=== PATIENT | male | born 1965 | race Asian ===

== ENCOUNTER 2017-01-23 16:22 | Emergency (ER) | payer BC ==
[~2017-01-23] VITALS: Ht 182.9 cm; Wt 82.6 kg
[2017-01-23 16:31] VITALS: BP_SYST 126
--- NOTE | 2017-01-23 16:34 | NUR ---
Pt to bed 3
--- NOTE | 2017-01-23 16:38 | NUR ---
Pt in restroom giving urine sample
--- NOTE | 2017-01-23 16:45 | NUR ---
Pt presents to ED with rt flank pain. Reports vomiting x3 d/t pain. Denies dysuria, frequency, hematuria. Pt is A&Ox4 in no acute distress.
--- NOTE | 2017-01-23 16:45 | NUR ---
TEMP RE-CHECKED= 98.1
[2017-01-23] MEDS ORDERED: NACL 0.9% 1,000 ML IV ONE (17:05)
[2017-01-23] MEDS ORDERED: KETOROLAC TROMETHAMINE 30 MG VIAL IVP ONE (17:15)
[2017-01-23 17:17] LABS: BILIRUBIN,URINE NEGATIVE (NEGATIVE); BLOOD, URINE 3+ (NEGATIVE); CLARITY/URINE HAZY (CLEAR); COLOR,URINE YELLOW (YELLOW); GLUCOSE,URINE NEGATIVE (NEGATIVE); KETONES,URINE NEGATIVE (NEGATIVE); LEUKOCYTE ESTERASE ,URINE NEGATIVE (NEGATIVE); NITRITE, URINE NEGATIVE (NEGATIVE); PH,URINE 5.5 (5.0-8.0); PROTEIN URINE TRACE (NEGATIVE); UROBILINOGEN,URINE 0.2 (0.2-1.0)
--- NOTE | 2017-01-23 17:23 | NUR ---
ER at bedside examining patient.
[2017-01-23 17:28] LABS: BACTERIA,URINE FEW /HPF (None Seen); RBC,URINE >100 /HPF (0-3)
--- NOTE | 2017-01-23 17:29 | NUR ---
# 20 gauge angiocath placed to RFA. Use of asceptic technique. Opsite placed over site. Blood return noted. Blood for lab drawn from site. Flushed with 10 cc of normal saline. No evidence of infiltration noted. Patient tolerated well.
[2017-01-23 17:30] LABS: CALCIUM OXALATE CRYSTALS,UR 30-50 /HPF (None Seen); MUCUS,URINE 2+ /LPF (None Seen)
[2017-01-23 17:58] LABS: BASOPHILS # (AUTO) 0.1 K/uL (0.0-0.2); BASOPHILS % (AUTO) 0.5 % (0.0-2.0); EOSINOPHILS # (AUTO) 0.1 K/uL (0.0-0.4); EOSINOPHILS % (AUTO) 0.4 % (0.0-4.0); HEMATOCRIT 37.3 % (36-54); LYMPHOCYTES # (AUTO) 0.8 K/uL (1.0-5.5); LYMPHOCYTES % (AUTO) 5.6 % (20.5-51.5); MEAN CORPUSCULAR HEMOGLOBIN 31 pg (27-31); MEAN CORPUSCULAR HGB CONC 35 % (32-36); MEAN CORPUSCULAR VOLUME 89 fL (79.0-98.0); MONOCYTES # (AUTO) 0.4 K/uL (0.0-1.0); MONOCYTES % (AUTO) 3.1 % (1.7-9.3); NEUTROPHILS % (AUTO) 90.4 % (40.0-70.0); PLATELET COUNT (AUTO) 201 K/uL (130-430); RED BLOOD CELL COUNT(AUTO) 4.21 MIL/uL (4.2-6.2); WHITE BLOOD COUNT (AUTO) 14.4 K/uL (4.8-10.8)
[2017-01-23 18:00] LABS: CALCIUM 8.7 mg/dL (8.4-11.0); CREATININE 1.11 mg/dL (0.55-1.30); POTASSIUM 4.2 mmol/L (3.5-5.1)
[2017-01-23 18:04] LABS: TOTAL BILIRUBIN 0.8 mg/dL (0.0-1.0)
[2017-01-23 19:24] VITALS: BP_SYST 122
--- NOTE | 2017-01-23 19:24 | NUR ---
Patient given written and verbal discharge instructions and verbalizes understanding. ER MD discussed with patient the results and treatment provided. Given copies of tests performed in ER. Patient in stable condition. ID arm band removed. IV catheter removed intact and dressing applied, no active bleeding. Rx of Flomax, Motrin, [place] given. Patient educated on pain management and to follow up with PMD. Pain Scale 2/10. Opportunity for questions provided and answered.
== END 2017-01-23 19:24 | disposition home or self-care (01) ==
LOC: SED 16:22
DX: N20.0 Calculus of kidney (principal); F17.200 Nicotine dependence, unspecified, uncomplicated
CPT/HCPCS: 36415; 74176; 80053; 81000; 83690; 85025; 96361; 96374; 99285; J1885; J7030

== ENCOUNTER 2021-04-15 18:08 | Emergency (ER) | payer BC, OTHER ==
[~2021-04-15] VITALS: Ht 182.9 cm; Wt 83.9 kg
[2021-04-15 18:30] VITALS: BP_SYST 162
--- NOTE | 2021-04-15 18:42 | NUR ---
Pt. bib with c/o back pain and nausea, started about 2pm today, pain to lower back 9/10 and has vomitted 5 X, currently pain 6 to 7/10 and no nausea, pt. denies any injury or trauma
[2021-04-15] MEDS ORDERED: MORPHINE 4 MG INJ. 4 MG/ML VIAL IVP ONE (19:00)
[2021-04-15] MEDS ORDERED: KETOROLAC TROMETHAMINE 30 MG VIAL IM ONE (19:00)
[2021-04-15] MEDS ORDERED: NACL 0.9% 1,000 ML IV ONE (19:00)
--- NOTE | 2021-04-15 19:00 | NUR ---
MARY Caballero at bedside examining patient.
[2021-04-15] MEDS ORDERED: MORPHINE 4 MG INJ. 4 MG/ML VIAL ONE (19:08)
--- NOTE | 2021-04-15 19:14 | NUR ---
# 20 gauge angiocath placed to left AC. Use of asceptic technique. Opsite placed over site. Blood return noted. Blood for lab drawn from site. Flushed with 10 cc of normal saline. No evidence of infiltration noted. Patient tolerated well.
--- NOTE | 2021-04-15 19:19 | NUR ---
Report to Jany
--- NOTE | 2021-04-15 19:20 | NUR ---
Received endorsement from day shift, AAOX4, breathing spontaneously at room air, not in distress noted With IV cannula g20 at left ac on saline lock noted, patent. Vital signs stable, with right flank pain 2/10 as claimed
[2021-04-15 19:22] LABS: BILIRUBIN,URINE NEGATIVE (NEGATIVE); BLOOD, URINE 3+ (NEGATIVE); CLARITY/URINE CLEAR (CLEAR); COLOR,URINE YELLOW (YELLOW); GLUCOSE,URINE NEGATIVE (NEGATIVE); KETONES,URINE TRACE (NEGATIVE); LEUKOCYTE ESTERASE ,URINE NEGATIVE (NEGATIVE); NITRITE, URINE NEGATIVE (NEGATIVE); PROTEIN URINE TRACE (NEGATIVE); UROBILINOGEN,URINE 0.2 (0.2-1.0)
[2021-04-15 19:27] LABS: BASOPHILS % (AUTO) 0.3 % (0.0-2.0); EOSINOPHILS % (AUTO) 0.1 % (0.0-4.0); HEMATOCRIT 40.4 % (36-54); HEMOGLOBIN 13.8 g/dL (14.0-18.0); LYMPHOCYTES # (AUTO) 0.8 K/uL (1.0-5.5); MEAN CORPUSCULAR HEMOGLOBIN 31 pg (27-31); MEAN CORPUSCULAR HGB CONC 34 % (32-36); MEAN CORPUSCULAR VOLUME 90 fL (79.0-98.0); MONOCYTES # (AUTO) 0.5 K/uL (0.0-1.0); MONOCYTES % (AUTO) 3.8 % (1.7-9.3); NEUTROPHILS # (AUTO) 12.3 K/uL (1.8-7.7); NEUTROPHILS % (AUTO) 89.8 % (40.0-70.0); PLATELET COUNT (AUTO) 190 K/uL (130-430); RED BLOOD CELL COUNT(AUTO) 4.48 MIL/uL (4.2-6.2); RED CELL DISTRIBUTION WIDTH 12.7 % (9.0-15.0); WHITE BLOOD COUNT (AUTO) 13.7 K/uL (4.8-10.8)
[2021-04-15 19:36] LABS: CALCIUM 8.8 mg/dL (8.4-11.0); CREATININE 1.34 mg/dL (0.55-1.30); POTASSIUM 4.1 mmol/L (3.5-5.1)
[2021-04-15 19:38] LABS: BACTERIA,URINE FEW /HPF (None Seen); CALCIUM OXALATE CRYSTALS,UR 0-10 /HPF (None Seen); MUCUS,URINE None Seen /LPF (None Seen); RBC,URINE 50-80 /HPF (0-3); WBC,URINE 0-3 /HPF (0-3)
[2021-04-15 19:41] LABS: ALBUMIN 4.2 g/dL (3.4-4.8); TOTAL BILIRUBIN 1.1 mg/dL (0.0-1.0)
--- NOTE | 2021-04-15 20:01 | NUR ---
To CT Scan department per wheelchair in stable condition accompanied by change director
--- NOTE | 2021-04-15 20:14 | NUR ---
Back to bed, kept comfortable
[2021-04-15] MEDS ORDERED: cefTRIAXone 1 GM in D5W 50 ML IV ONE ×2 (20:45→21:00)
[2021-04-15] MEDS ORDERED: [UNRECOGNIZED DRUG - CODE] PO (20:59)
[2021-04-15] MEDS ORDERED: OXYC-128 PO (20:59)
[2021-04-15] MEDS ORDERED: ONDA-8 TL (20:59)
[2021-04-15] MEDS ORDERED: CEFA250C45 PO (20:59)
[2021-04-15] MEDS ORDERED: cefTRIAXone 1 GM VIAL ONE (21:04)
--- NOTE | 2021-04-15 21:30 | NUR ---
Patient verbalized pain free, 0/10.
--- NOTE | 2021-04-15 22:26 | NUR ---
Patient given written and verbal discharge instructions and verbalizes understanding. ER MD discussed with patient the results and treatment provided. Patient in stable condition. ID arm band removed. IV catheter removed intact and dressing applied, no active bleeding. Rx of CECLOR,IBUPROFEN,ZOFRAN,PERCOCET given. Patient educated on pain management and to follow up with PMD. Pain Scale 0/10. Opportunity for questions provided and answered. Medication side effect fact sheet provided.
[2021-04-15 22:27] VITALS: BP_SYST 132
== END 2021-04-15 22:27 | disposition home or self-care (01) ==
LOC: SED 18:08
DX: N13.2 Hydronephrosis with renal and ureteral calculous obstruction (principal); R11.2 Nausea with vomiting, unspecified; Z79.899 Other long term (current) drug therapy
CPT/HCPCS: 36415; 74176; 76376; 80053; 81000; 83605; 85025; 87040; 96361; 96365; 96372; 96375; 99285; J0696; J1885; J2270; J7030